=== PATIENT | male | born 1980 | race Caucasian/White ===

== ENCOUNTER 2019-09-08 07:57 | Outpatient (CLI) | payer OTHER, SELFPAY ==
--- NOTE | 2019-09-08 08:08 | MR_ITS ---
WS: [id number] MRI BRAIN WITH HIGH-RESOLUTION IMAGING THROUGH THE INTERNAL AUDITORY CANALS WITHOUT AND WITH CONTRAST HISTORY: Hearing loss and ear pain. Left-sided chronic pain. COMPARISON: None available. TECHNIQUE: Multiplanar, multisequence imaging is performed through the brain. Additional 3 mm imaging performed in multiple planes through the internal auditory canal. Postcontrast imaging with 17 ml's of Prohance. No acute intracranial hemorrhage, midline shift, edema or mass effect. No significant chronic white matter disease or prior infarct. There is mild thickening and nodularity involving the posterior nasopharynx with mild enhancement. May be postinflammatory. There is also in creased enhancement involving the torus tubarius but these findings are bilateral. Ventricles and extra-axial spaces are normal. No inferior displacement of cerebellar tonsils. Clivus and pituitary gland are normal. Internal and external auditory canals: Unremarkable. Cranial nerves VII and VIII complexes: Unremarkable. No enhancement or mass. Cerebellopontine angles: Normal. Paranasal sinuses: Normal. Mastoid air cells: Normal. Calvarium and scalp: Normal. Visualized [place] and dural venous sinuses demonstrate no abnormality. MR/MR iac's wo/w con* [id number] IMPRESSION: 1. Normal MRI internal auditory canals. 2. Mild hyperemia of the nasopharynx and torus tubarius. Symmetrical finding a nd may be postinflammatory. Direct visualization recommended.
== END 2019-09-08 07:58 | disposition home or self-care (01) ==
LOC: RADSHAW 08:01
PROVIDERS: PCP Emergency Medicine Emergency Medical Services; Visit Provider Specialist
DX: H91.90 Unspecified hearing loss, unspecified ear (principal); R68.89 Other general symptoms and signs
CPT/HCPCS: 70553; A9579

== ENCOUNTER → 2023-08-05 09:55 | Outpatient (BNVA) | payer OTHER, SELFPAY | PROVIDERS: PCP Emergency Medicine Emergency Medical Services; Visit Provider Podiatrist Foot & Ankle Surgery | DX: L85.3 Xerosis cutis (principal); R23.4 Changes in skin texture | CPT/HCPCS: 99203 ==

== ENCOUNTER → 2024-05-06 08:20 | Outpatient (BNVA) | payer OTHER, SELFPAY | PROVIDERS: PCP Emergency Medicine Emergency Medical Services; Visit Provider Specialist | DX: M25.551 Pain in right hip (principal); M16.0 Bilateral primary osteoarthritis of hip | CPT/HCPCS: 73502; 99205 ==

== ENCOUNTER → 2024-05-13 08:10 | Outpatient (BNVA) | payer OTHER, SELFPAY | PROVIDERS: PCP Emergency Medicine Emergency Medical Services; Visit Provider Surgery | DX: Z12.11 Encounter for screening for malignant neoplasm of colon (principal) | CPT/HCPCS: 99204 ==

== ENCOUNTER 2024-05-18 06:53 | Outpatient (CLI) | payer OTHER, SELFPAY ==
--- NOTE | 2024-05-18 07:15 | MR_ITS ---
WS: [id number] MRI RIGHT HIP WITHOUT CONTRAST. COMPARISON: Radiograph 05/06/2024 Multiplanar, multisequence imaging is performed without contrast. No acute fractures. There is very minimal marrow edema along the medial RIGHT acetabulum. Mild narrow ing of the RIGHT hip joint. Very minimal irregularity along the surface cartilage. There is a small o steophyte from the lateral superior acetabulum. Increased T2 signal in the anterior superior labrum w hich is asymmetric to the LEFT side and consistent with a labral tear. The synovium over the RIGHT la teral hip also appears slightly thickened as compared to the LEFT. There is no joint effusion. No displacement. No soft tissue edema. No gluteus muscle tears or tendon abnormalities. MR/MR hip RT wo con* [id number] IMPRESSION: 1. Very mild joint space narrowing with cortical irregularity involving the RI GHT hip. 2. Increased T2 signal in the anterior superior labrum, likely labral tear. 3. No joint effusion. 4. No muscle edema or atrophy.
== END 2024-05-18 06:54 | disposition home or self-care (01) ==
PROVIDERS: Visit Provider Specialist
DX: S73.191A Other sprain of right hip, initial encounter (principal); M25.751 Osteophyte, right hip; X58.XXXA Exposure to other specified factors, initial encounter
CPT/HCPCS: 73721

== ENCOUNTER → 2024-05-20 08:22 | Outpatient (BNVA) | payer OTHER, SELFPAY | PROVIDERS: Visit Provider Specialist | DX: S73.191A Other sprain of right hip, initial encounter (principal); M16.0 Bilateral primary osteoarthritis of hip; X58.XXXA Exposure to other specified factors, initial encounter | CPT/HCPCS: 99214 ==

== ENCOUNTER 2024-05-26 05:52 | Day surgery (SDC) | payer OTHER, SELFPAY ==
--- NOTE | 2024-05-26 05:36 | P.HPUD_ITS ---
Surgery/Procedure H&P Update DATE OF PROCEDURE: May 26, 2024 DATE H&P PERFORMED: 05/13/24 H&P UPDATE INFORMATION: I have reviewed H&P completed within last 30 days, I have examined patient prior to procedure, No changes to prior documentation and H&P is in [facility] on date indicated PLANNED PROCEDURE: Operation Date: 05/26/24 07:00 Proposed Procedures p Colonoscopy- [id number],G0121, Z12.11(Not Applicable) - Anuj Jimenez MD
[2024-05-26] MEDS: sodium chloride 0.9% 1,000 ML 30 ML IV (06:07)
[2024-05-26 06:12] VITALS: BP 111/79; PULSE 127; RESP 18; TEMP 36.5; O2SAT 95
[2024-05-26 06:13] VITALS: BMI 30.3
--- NOTE | 2024-05-26 06:47 | P.ANESASSM_ITS ---
Pre-Anesthetic Assessment Height/Weight: Height 1.85 m Weight 104.326 kg Temp Pulse Resp BP Pulse Ox O2 Del Method 97.7 F 127 H 18 111/79 95 Room Air 05/26/24 06:12 05/26/24 06:12 05/26/24 06:12 05/26/24 06:12 05/26/24 06:12 05/26/24 06:12 Preop Diagnosis: screening Operation Date: 05/26/24 07:00 Proposed Procedures p Colonoscopy- 80644,G0121, Z12.11(Not Applicable) - Anuj Jimenez MD Familial anesthetic complications: none Last intake: Intake Last Liquid Date 05/25/24 Last Liquid Time 22:00 Last Solid Date 05/24/24 Social Tobacco and No alcohol cannabis 48 hours prior Airway Submandibular: within normal limits Cervical ROM: within normal limits Mallampati: Class II Dentition: partials (lower) Pulmonary None reported CV/HEM Arrythmia ( wasnt serious denies current issue.) None reported Hepatic None reported GI Gastroesophageal Reflux Disease and Peptic Ulcer Disease (suspects abdominal ulcer. ) Metabolic None reported Musc/skel None reported Neuropsych Depression and Seizure (4 years since last seizure) Anesthetic Plan ASA status: 2 Anesthesia: MAC Medications/Allergies Home Medications Medication Instructions Recorded Confirmed Last Taken Type acetaminophen 500 mg tablet 500 mg PO PRN PRN pain or fever 08/05/23 05/26/24 05/24/24 History ammonium lactate 12 % lotion 1 applic topical BID #400 grams 08/05/23 05/21/24 05/24/24 Rx buspirone 10 mg tablet 10 mg PO DAILY 08/05/23 05/21/24 05/24/24 History cholecalciferol (vitamin D3) 50 50 mcg PO DAILY 08/05/23 05/21/24 05/24/24 H istory mcg (2,000 unit) tablet pantoprazole 40 mg tablet,delayed 40 mg PO DAILY 08/05/23 05/21/24 05/24/24 History release paroxetine HCl 20 mg tablet 20 mg PO DAILY 08/05/23 05/21/24 05/24/24 History quetiapine 200 mg tablet 200 mg PO DAILY 08/05/23 05/21/24 05/24/24 History urea 45 % topical gel 1 applic topical BID 30 days #28 mL 08/05/23 05/21/24 05/24/24 Rx ondansetron HCl 4 mg tablet 4 mg PO Q8H PRN nausea and 05/13/24 05/26/24 Unknown Rx vomiting #3 tabs prazosin 1 mg capsule 1 mg PO TID 05/21/24 05/21/24 05/24/24 History topiramate 50 mg tablet 50 mg PO DAILY 05/21/24 05/21/24 05/24/24 History Allergies Allergy/AdvReac Type Severity Reaction Status Date / Time asprin Allergy Intermediate ADR-Migrain Uncoded 05/21/24 08:33 e Current Medications Generic Name Dose Route Start Last Admin Trade Name Freq PRN Reason Stop Dose Admin Sodium Chloride 1,000 mls @ 30 mls/hr 05/26/24 06:00 05/26/24 06:07 Sodium Chloride 0.9% IV 05/27/24 05:59 30 mls/hr .Q24H KODY Administration PFSH Anesthesia Social History Smoking and tobacco/nicotine status: current every day tobacco/nicotine user cigarettes Alcohol intake: former Data Anesthesia Cardiac Studies: No Data to Display
[2024-05-26 07:23] VITALS: BP 98/61; PULSE 107; RESP 18; TEMP 36.1; O2SAT 95
[2024-05-26 07:45] VITALS: BP 111/85; PULSE 90; RESP 18; O2SAT 94
--- NOTE | 2024-05-26 07:55 | ANE.PACU2 ---
Inpatient post-anesthesia follow up: Airway intact: Yes Vital signs: Temperature 97 F Pulse Rate 90 Respiratory Rate 18 Blood Pressure 111/85 Pulse Oximetry 94 Oxygen Delivery Me thod Room Air Oxygen Flow Rate 3 Fraction of Inspir ed Oxygen Hydration adequate: Yes Nausea and vomiting: No Pain level: 1 Mental status: Baseline
== END 2024-05-26 07:58 | disposition home or self-care (01) ==
PROVIDERS: Visit Provider Surgery
PROC: 0DJD8ZZ Inspection of Lower Intestinal Tract, Via Natural or Artificial Opening Endoscopic (ICD-10-PCS; CPT 45378; principal; 2024-05-26 07:00)
DX: Z12.11 Encounter for screening for malignant neoplasm of colon (principal); D12.2 Benign neoplasm of ascending colon; D12.8 Benign neoplasm of rectum; K21.9 Gastro-esophageal reflux disease without esophagitis; Z87.11 Personal history of peptic ulcer disease; F17.210 Nicotine dependence, cigarettes, uncomplicated
CPT/HCPCS: 45385; 88305; J2250; J2704; J7030

== ENCOUNTER → 2024-06-10 10:03 | Outpatient (BNVA) | payer OTHER, SELFPAY | PROVIDERS: Visit Provider Surgery | DX: Z09 Encounter for follow-up examination after completed treatment for conditions other than malignant neoplasm | CPT/HCPCS: 99213 ==

== ENCOUNTER 2024-06-11 07:05 | Day surgery (SDC) | payer OTHER, SELFPAY ==
--- NOTE | 2024-06-11 06:15 | P.HPUD_ITS ---
Surgery/Procedure H&P Update DATE OF PROCEDURE: June 11, 2024 DATE H&P PERFORMED: 05/12/24 H&P UPDATE INFORMATION: I have reviewed H&P completed within last 30 days, I have examined patient prior to procedure, No changes to prior documentation and H&P is in [facility] [place] on date indicated PLANNED PROCEDURE: Operation Date: 06/11/24 08:20 Proposed Procedures p EGD 09898, K21.9(Not Applicable) - Anuj Jimenez MD
[2024-06-11 07:17] VITALS: BMI 31.1
[2024-06-11 07:20] VITALS: BP 116/80; PULSE 107; RESP 18; TEMP 36.2; O2SAT 97
[2024-06-11] MEDS: sodium chloride 0.9% 500 ML 15 ML IV (07:24)
--- NOTE | 2024-06-11 08:27 | ANES.PAUD2 ---
Pre-Anesthetic Update Pre-Anesthetic Assessment: Date of Surgery/Procedure: 06/11/24 Proposed Procedure: Operation Date: 06/11/24 08:20 Proposed Procedures p EGD 31937, K21.9(Not Applicable) - Anuj Jimenez MD Changes from Pre-Anesthetic Assessment: Patient was here two weeks prior for colonoscopy, no changes in health. Patient presents for EGD denies any changes over last two weeks. Patient reports Cannabis use 06/10/24 Last Intake: Intake Last Liquid Date 06/10/24 Last Liquid Time 22:00 Last Solid Date 06/10/24 Labs Last 48hrs: 2200 06/10/24 meal Vitals: Temperature 97.1 F L 06/11/24 07:20 Temperature Source Temporal Artery S can 06/11/24 07:20 Pulse Rate 107 H 06/11/24 07:20 Respiratory Rate 18 06/11/24 07:20 Blood Pressure 116/80 06/11/24 07:20 Blood Pressure Lorri n 92 06/11/24 07:20 Pulse Oximetry 97 06/11/24 07:20 Oxygen Delivery Me thod Room Air 06/11/24 07:20 Cardiac Studies: No Data to Display
[2024-06-11 08:59] VITALS: BP 100/76; PULSE 95; RESP 14; TEMP 36.4; O2SAT 95
[2024-06-11 09:20] VITALS: BP 114/75; PULSE 93; RESP 16; O2SAT 97
--- NOTE | 2024-06-11 09:45 | ANE.PACU2 ---
Inpatient post-anesthesia follow up: Airway intact: Yes Vital signs: Temperature 97.6 F Pulse Rate 93 Respiratory Rate 16 Blood Pressure 114/75 Pulse Oximetry 97 Oxygen Delivery Me thod Room Air Oxygen Flow Rate Fraction of Inspir ed Oxygen Hydration adequate: Yes Nausea and vomiting: No Pain level: 1 Mental status: Baseline
== END 2024-06-11 09:45 | disposition home or self-care (01) ==
PROVIDERS: PCP Nurse Practitioner Family; Visit Provider Surgery
PROC: 0DJ08ZZ Inspection of Upper Intestinal Tract, Via Natural or Artificial Opening Endoscopic (ICD-10-PCS; CPT 43235; principal; 2024-06-11 08:20)
DX: K21.00 Gastro-esophageal reflux disease with esophagitis, without bleeding (principal); K44.9 Diaphragmatic hernia without obstruction or gangrene; K29.70 Gastritis, unspecified, without bleeding
CPT/HCPCS: 43239; 88305; J2250; J7040

== ENCOUNTER → 2024-06-16 08:32 | Outpatient (BNVA) | payer OTHER, SELFPAY | PROVIDERS: PCP Nurse Practitioner Family; Visit Provider Orthopaedic Surgery | DX: M48.062 Spinal stenosis, lumbar region with neurogenic claudication (principal); M54.50 Low back pain, unspecified | CPT/HCPCS: 72110; 99204 ==

== ENCOUNTER 2024-06-19 07:03 | Outpatient (CLI) | payer OTHER, SELFPAY ==
--- NOTE | 2024-06-19 07:15 | MR_ITS ---
WS: [id number] MRI LUMBAR SPINE NONCONTRAST HISTORY: back pain, radiating pain down RIGHT hip. COMPARISON: No similar studies. TECHNIQUE: Sagittal and axial multisequence imaging is submitted. Normal lumbar alignment with no compression fractures or marrow edema. Disc spaces and vertebral body heights are well-preserved. Conus terminates normally at L1. L1-L2: Normal. L2-L3: Normal. L3-L4: Annular disc bulging. Small amount of fluid in the facet joints. No stenosis. L4-L5: Mild bilateral facet joint arthropathy. No stenosis. L5-S1: Rudimentary disc. No stenosis. MR/MR lumbar spine wo con* [id number] IMPRESSION: 1. No high-grade central or foraminal stenosis. 2. No disc protrusions. 3. Mild facet joint arthropathy at L3-4 and L4-5.
== END 2024-06-19 07:04 | disposition home or self-care (01) ==
LOC: RAD 07:04
PROVIDERS: PCP Nurse Practitioner Family; Visit Provider Orthopaedic Surgery
DX: M54.9 Dorsalgia, unspecified (principal)
CPT/HCPCS: 72148

== ENCOUNTER → 2024-07-14 08:03 | Outpatient (BNVA) | payer OTHER, SELFPAY | PROVIDERS: PCP Nurse Practitioner Family; Visit Provider Orthopaedic Surgery | DX: Z09 Encounter for follow-up examination after completed treatment for conditions other than malignant neoplasm (principal) | CPT/HCPCS: 99213 ==

== ENCOUNTER → 2024-09-15 08:27 | Outpatient (BNVA) | payer OTHER, SELFPAY | PROVIDERS: PCP Nurse Practitioner Family; Visit Provider Orthopaedic Surgery | DX: M48.062 Spinal stenosis, lumbar region with neurogenic claudication (principal) | CPT/HCPCS: 36415; 80053; 81001; 85025; 99214 ==